=== PATIENT | female | born 1990 | race Caucasian/White ===

== ENCOUNTER 2017-05-21 09:33 | Emergency (ER) | payer SELFPAY ==
[~2017-05-21] VITALS: Ht 152.4 cm; Wt 75.0 kg
[2017-05-21 09:36] VITALS: BP 111/63; PULSE 88; RESP 17; TEMP 98.7; O2SAT 98
[2017-05-21] MEDS ORDERED: SODIUM CHLOR 0.9% 1000 ML INJ 1,000 ML IV ONE (10:00)
[2017-05-21] MEDS ORDERED: KETOROLAC TROMETHAMINE 30 MG/ML (IVP) VIAL IV PUSH ONE (10:00)
[2017-05-21 10:23] LABS: AUTOMATED NEUTROPHIL # 4.7 TH/MM3 (1.8-7.7); BASOPHIL # 0.1 TH/MM3 (0-0.2); BASOPHIL % 1.1 % (0.0-2.0); EOSINOPHIL # 0.2 TH/MM3 (0-0.4); EOSINOPHIL % 2.5 % (0.0-4.0); HEMATOCRIT 41.2 % (35.0-46.0); HEMO FLAGS DIFF FINAL; LYMPH % 35.3 % (9.0-44.0); LYMPHOCYTE # 2.9 TH/MM3 (1.0-4.8); MEAN CELL VOLUME 90.9 FL (80.0-100.0); MEAN CORPUSCULAR HEMOGLOBIN 31.1 PG (27.0-34.0); MEAN CORPUSCULAR HGB CONC 34.2 % (32.0-36.0); MONO % 4.6 % (0.0-8.0); NEUT % 56.5 % (16.0-70.0); PLATELET COUNT 181 TH/MM3 (150-450); RED BLOOD COUNT 4.53 MIL/MM3 (4.00-5.30); RED CELL DISTRIBUTION WIDTH 12.1 % (11.6-17.2); WHITE BLOOD COUNT 8.3 TH/MM3 (4.0-11.0)
[2017-05-21 10:24] LABS: BLOOD, URINE NEG (NEG); GLUCOSE,URINE NEG (NEG); KETONE, URINE NEG (NEG); NITRITE,URINE POS (NEG)
[2017-05-21 10:29] LABS: METHOD OF COLLECTION CLEAN CATCH; URINE COLOR YELLOW (YELLW/STRAW)
[2017-05-21 10:30] LABS: BACTERIA, URINE MANY /hpf; COMMENT (UR) CULTURE INDICATED; CULTURE IF INDICATED CULTURE INDICATED; RBC, URINE 0-3 /hpf (0-3); SQUAMOUS EPITHELIAL CELL URINE > 8 /hpf (0-5); WBC, URINE 15-19 /hpf (0-5)
[2017-05-21 10:31] LABS: CHLORIDE 107 MEQ/L (98-107); POTASSIUM 3.7 MEQ/L (3.5-5.1); SODIUM (NA) 140 MEQ/L (136-145)
[2017-05-21 10:34] LABS: ANION GAP 8 MEQ/L (5-15); BICARBONATE 25.5 MEQ/L (21.0-32.0)
[2017-05-21 10:35] LABS: BLOOD UREA NITROGEN 10 MG/DL (7-18)
[2017-05-21 10:37] LABS: ALT (GPT) 17 U/L (10-53)
[2017-05-21 10:38] LABS: AST (GOT) 11 U/L (15-37); GLOMERULAR FILTRATION RATE 100 ML/MIN (>89)
[2017-05-21 10:39] LABS: TOTAL BILIRUBIN ADULT 0.7 MG/DL (0.2-1.0)
[2017-05-21 10:40] LABS: ALKALINE PHOSPHATASE 37 U/L (45-117)
[2017-05-21] MEDS ORDERED: BACT800T5 PO (11:02)
--- NOTE | 2017-05-21 11:08 | PD ---
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 She denies any fevers or chills. She denies any vomiting but she does feel nauseous. She says she's been having similar pains for the past year. She was told an outside hospital that she has 2 masses in her liver one of which is 3 cm and one of which is smaller. She supposed to get a repeat CT scan to determine whether or not they will require surgical excision. [facility] Past Medical History Asthma: Yes ?: Unknown LMP: 05/11/2017-TL Menopausal: No : 1 Para: 1 Past Surgical History Section: Yes (X1) Social History Alcohol Use: No Tobacco Use: No Substance Use: No Allergies-Medications (Allergen,Severity, Reaction): Coded Allergies: oxycodone (Verified Allergy, Severe, HIVES, SWELLING, 05/21/17) amoxicillin (Verified Allergy, Unknown, 05/21/17) Review of Systems Except as stated in HPI: all other systems reviewed are Neg Physical Exam Narrative GENERAL:Well appearing, no acute distress SKIN: Focused skin assessment warm and dry. HEAD: Atraumatic. Normocephalic. EYES: Pupils equal and round. No injection or drainage. ENT: Moist mucous membranes NECK: Trachea midline. CARDIOVASCULAR: Regular rate and rhythm. No murmur appreciated. RESPIRATORY: Clear to auscultation. Breath sounds equal bilaterally. GASTROINTESTINAL: Abdomen soft, tender to palpation along the right mid abdomen with no rebound or guarding. MUSCULOSKELETAL: No obvious deformities. NEUROLOGICAL: Awake and alert. No obvious cranial nerve deficits. Moving all extremities. PSYCHIATRIC: Speech is somewhat pressured, intermittently tearful Data Data Last Documented VS Vital Signs Date Time Temp Pulse Resp B/P (MAP) Pulse Ox O2 Delivery O2 Flow Rate FiO2 05/21/17 09:36 98.7 88 17 111/63 (79) 98 Orders Orders Complete Blood Count With Diff (05/21/17 09:56) Comprehensive Metabolic Panel (05/21/17 09:56) Urinalysis - C+S If Indicated (05/21/17 09:56) Ed Urine Pregnancytest Poc (05/21/17 09:56) ^ Insert Iv (05/21/17 09:56) Sodium Chlor 0.9% 1000 Ml Inj (Ns 1000 M (05/21/17 10:00) Ketorolac Inj (Toradol Inj) (05/21/17 10:00) Urine Culture (05/21/17 10:19) Labs Laboratory Tests Test 05/21/17 10:19 White Blood Count 8.3 TH/MM3 Red Blood Count 4.53 MIL/MM3 Hemoglobin 14.1 GM/DL Hematocrit 41.2 % Mean Corpuscular Volume 90.9 FL Mean Corpuscular Hemoglobin 31.1 PG Mean Corpuscular Hemoglobin Concent 34.2 % Red Cell Distribution Width 12.1 % Platelet Count 181 TH/MM3 Mean Platelet Volume 8.9 FL Neutrophils (%) (Auto) 56.5 % Lymphocytes (%) (Auto) 35.3 % Monocytes (%) (Auto) 4.6 % Eosinophils (%) (Auto) 2.5 % Basophils (%) (Auto) 1.1 % Neutrophils # (Auto) 4.7 TH/MM3 Lymphocytes # (Auto) 2.9 TH/MM3 Monocytes # (Auto) 0.4 TH/MM3 Eosinophils # (Auto) 0.2 TH/MM3 Basophils # (Auto) 0.1 TH/MM3 CBC Comment DIFF FINAL Differential Comment Urine Collection Type CLEAN CATCH Urine Color YELLOW Urine Turbidity MOD Urine pH 6.0 Urine Specific [place] 1.019 Urine Protein NEG mg/dL Urine Glucose (UA) NEG mg/dL Urine Ketones NEG mg/dL Urine Occult Blood NEG Urine Nitrite POS Urine Bilirubin NEG Urine Leukocyte Esterase TRACE Urine RBC 0-3 /hpf Urine WBC 15-19 /hpf Urine Squamous Epithelial Cells > 8 /hpf Urine Bacteria MANY /hpf Microscopic Urinalysis Comment CULTURE INDICATED Urine Collection Time 10:19 Blood Urea Nitrogen 10 MG/DL Creatinine 0.70 MG/DL Random Glucose 83 MG/DL Total Protein 7.0 GM/DL Albumin 3.8 GM/DL Calcium Level 8.9 MG/DL Alkaline Phosphatase 37 U/L Aspartate Amino Transf (AST/SGOT) 11 U/L Alanine Aminotransferase (ALT/SGPT) 17 U/L Total Bilirubin 0.7 MG/DL Sodium Level 140 MEQ/L Potassium Level 3.7 MEQ/L Chloride Level 107 MEQ/L Carbon Dioxide Level 25.5 MEQ/L Anion Gap 8 MEQ/L Estimat Glomerular Filtration Rate 100 ML/MIN MDM Medical Decision Making Medical Screen Exam Complete: Yes Emergency Medical Condition: Yes Interpretation(s) Afebrile, no tachycardia, normotensive No leukocytosis Electrolytes are reassuring Urinalysis is contaminated but suggests possible urinary tract infection Differential Diagnosis Cholelithiasis, cholecystitis, biliary obstruction, urinary tract infection, pyelonephritis, depression Narrative Course This is a 27-year-old female who presents to the emergency department with abdominal discomfort that appears to be acute on chronic. She's been told in the past that she has benign tumors in her liver. Labs were obtained including LFTs which were reassuring. She says her pain is chronic. I don't think she requires any additional imaging. She really is here because she wants a note for work. I think patient can safely be discharged and can follow-up as an outpatient. Diagnosis Primary Impression: Urinary tract infection Qualified Codes: N30.00 - Acute cystitis without hematuria Additional Impression: Chronic abdominal pain Patient Instructions: General Instructions Additional Instructions: If you develop fever, persistent vomiting, back pain, or inability to eat return to the emergency department as your urine infection may have progressed to a kidney infection. Complete your antibiotics as prescribed. Stay well hydrated with Gatorade or water. If you're not improved in one week follow-up with a primary care physician. Med/Other Pt SpecificInfo: Prescription(s) given Scripts Sulfamethoxazole-Trimethoprim (Bactrim DS) 800-160 Mg Tab 1 TAB PO BID for Infection, #6 TAB 0 Refills Prov: Chastity Mansfield MD 05/21/17 Disposition: 01 DISCHARGE HOME Condition: Stable Chastity Mansfield MD May 21, 2017 10:38
== END 2017-05-21 11:23 | disposition home or self-care (01) ==
LOC: PHED 09:33
DX: N30.00 Acute cystitis without hematuria (principal); G89.29 Other chronic pain; R10.11 Right upper quadrant pain; B96.20 Unspecified Escherichia coli [E. coli] as the cause of diseases classified elsewhere; J45.909 Unspecified asthma, uncomplicated
CPT/HCPCS: 80053; 81001; 84703; 85025; 87077; 87086; 87186; 96361; 96374; 99284; J1885; J7030

== ENCOUNTER 2017-07-17 15:06 | Emergency (ER) | payer MEDICAID ==
[~2017-07-17] VITALS: Ht 152.4 cm; Wt 70.0 kg
[~2017-07-17 15:06] MED LIST: BACT800T5 PO
[2017-07-17 15:12] VITALS: BP 129/71; PULSE 112; RESP 16; TEMP 98.4; O2SAT 98
[2017-07-17] MEDS ORDERED: ALPR0.25 PO (15:21)
[2017-07-17] MEDS ORDERED: FLUO-1 PO (15:21)
[2017-07-17] MEDS ORDERED: INSOMNIA MED (15:21)
--- NOTE | 2017-07-17 15:35 | PD ---
HPI Chief Complaint: Fall Time Seen by Provider: 15:18 Travel History International Travel<30 days: No Contact w/Intl Traveler<30days: No Traveled to known affect area: No History of Present Illness HPI 27-year-old female here for evaluation of right lateral rib pain status post fall 2 days ago. Patient reports while in the bathroom she slipped falling onto her right side. She reports her ribs may have made impact with the site of the tub or her arm she is unsure. She denies head injury, loss of consciousness, or any other injury. She reports mild to moderate discomfort in the right rib region since the injury. 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 This is the reason for the patient's emergency room visit. She denies headache, neck pain, chest pain , shortness of breath, or abdominal pain. She is reporting that the pain is controlled with Tylenol. PFSH Past Medical History Asthma: Yes Diminished Hearing: No Medical other: Yes (PTSD) Schizophrenia: Yes Tetanus Vaccination: Unknown ?: Not Menopausal: No : 1 Para: 1 Past Surgical History Section: Yes (X1) Other Surgery: Yes (HERNIA REPAIR) Social History Alcohol Use: No Tobacco Use: No Substance Use: No Allergies-Medications (Allergen,Severity, Reaction): Coded Allergies: oxycodone (Verified Allergy, Severe, HIVES, SWELLING, 07/17/17) amoxicillin (Verified Allergy, Unknown, as child, 07/17/17) Reported Meds & Prescriptions Reported Meds & Active Scripts Active Reported [Insomnia Med] Alprazolam 0.25 Mg Tab 0.25 Mg PO Q4H PRN Prozac (Fluoxetine HCl) 10 Mg Cap 10 Mg PO DAILY Review of Systems Except as stated in HPI: all other systems reviewed are Neg General / Constitutional: No: Fever Eyes: No: Visual changes HENT: No: Headaches Cardiovascular: No: Chest Pain or Discomfort Respiratory: No: Shortness of Breath Gastrointestinal: No: Abdominal Pain Physical Exam Narrative GENERAL: Well-nourished, well-developed patient. SKIN: Focused skin assessment warm/dry. HEAD: Normocephalic. EYES: No scleral icterus. No injection or drainage. NECK: Supple, trachea midline. No JVD or lymphadenopathy. CARDIOVASCULAR: Regular rate and rhythm without murmurs, gallops, or rubs. CHEST: Mild tenderness to the right lateral ribs. Without deformity or crepitance. No retractions or use of accessory muscles. RESPIRATORY: Breath sounds equal bilaterally. No accessory muscle use. GASTROINTESTINAL: Abdomen soft, non-tender, nondistended. Data Data Last Documented VS Vital Signs Date Time Temp Pulse Resp B/P (MAP) Pulse Ox O2 Delivery O2 Flow Rate FiO2 07/17/17 15:12 98.4 112 16 129/71 (90) 98 MDM Medical Decision Making Medical Screen Exam Complete: Yes Emergency Medical Condition: Yes Differential Diagnosis Rib fracture, rib contusion, pneumothorax Narrative Course 27-year-old female here with right rib pain status post fall in the bathroom 2 days ago. Patient was sent home by her employer today after they became aware she had an injury to her ribs. She presents today requesting a note to go back to work. She denies chest pain or shortness of breath. She reports she has mild to moderate pain in the right ribs consistent with a contusion. She declines x-rays at this time. She states that she has injured herself like this before and does not want any further workup. There is no crepitus to the ribs on palpation. Her lung sounds are equal bilaterally. She is in no distress. Return precautions discussed. Patient verbalizes understanding and agrees to plan Diagnosis Primary Impression: Contusion of rib on right side Qualified Codes: S20.211A - Contusion of right front wall of thorax, initial encounter Referrals: [facility] Departure Forms: Tests/Procedures, Work Release Enter return to work date: Jul 20, 2017 Additional Instructions: Use [id number] Tylenol or Motrin as needed for pain. Ice the area. Avoid heavy lifting or strenuous activity. Return if you developed new or worsening symptoms. Disposition: 01 DISCHARGE HOME Condition: Stable Olya Chandler Jul 17, 2017 15:35
== END 2017-07-17 15:52 | disposition home or self-care (01) ==
LOC: PHEFT 15:06
DX: S20.211A Contusion of right front wall of thorax, initial encounter (principal); W01.10XA Fall on same level from slipping, tripping and stumbling with subsequent striking against unspecified object, initial encounter; Y92.002 Bathroom of unspecified non-institutional (private) residence as the place of occurrence of the external cause
CPT/HCPCS: 99282